=== PATIENT | male | born 2000 | race Caucasian/White ===

== ENCOUNTER 2022-04-28 02:25 | Emergency (ER) | payer OTHER ==
[2022-04-28] MEDS ORDERED: Ondansetron PF 4 MG/2 ML Vial ONE (02:59)
[2022-04-28] MEDS ORDERED: Dicyclomine 20 MG TAB PO SCH (03:00)
[2022-04-28 03:28] LABS: #Eosinphils 0.1 10x3/uL (0.0-0.5); #Monocytes 0.5 10x3/uL (0.0-1.1); #Neutrophils 9.6 10x3/uL (1.5-8.4); %Basophils 0.3 % (0.0-2.0); %Eosinophils 0.7 % (0.0-6.0); %Lymphocytes 4.8 % (18.0-47.0); %Monocytes 4.7 % (0.0-10.0); %Neutrophils 89.3 % (40.0-75.0); Hemoglobin 16.8 g/dL (13.5-17.5); Mean Corpuscular HGB CONC 35.3 g/dL (32.0-36.0); Mean Corpuscular Hemoglobin 28.4 pg (27.0-33.0); Mean Corpuscular Volume 80.5 fl (81.2-95.1); Mean Platelet Volume 10.7 fl (7.4-10.4); Platelet Count 162 10x3/uL (150-450); RBC Distribution Width 12.2 % (11.5-14.5); Red Blood Cell (RBC) Count 5.91 10x6/uL (4.32-5.72); White Blood Cell (WBC) Count 10.7 10x3/uL (3.5-10.5)
[2022-04-28 03:45] LABS: Anion Gap 17 mmol/L (10-20); BUN (Urea Nitrogen) 18 mg/dL (8.9-20.6); Calc. Creatinine Clearance 0 mL/min (70-130); Carbon Dioxide 25 mmol/L (22-29); Chloride 104 mmol/L (98-107); Potassium 3.8 mmol/L (3.5-5.1); Sodium 142 mmol/L (136-145)
[2022-04-28 03:46] LABS: ALT (SGPT) 44 U/L (8-55); AST (SGOT) 86 U/L (5-34); Albumin 4.5 g/dL (3.5-5.0); Alkaline Phosphatase 84 U/L (40-110); Bilirubin, Total 1.9 mg/dL (0.2-1.2); Calcium 9.6 mg/dL (7.8-10.44); Estimated GFR 101; Globulin 2.9 g/dL (2.4-3.5); Glucose 104 mg/dL (70-105); Lipase 27 U/L (8-78); Protein, Total 7.4 g/dL (6.0-8.3)
[2022-04-28] MEDS ORDERED: Dicyclomine 20 MG TAB ONE (04:13)
== END 2022-04-28 04:39 | disposition home or self-care (01) ==
LOC: CSHERS 02:25
DX: R19.7 Diarrhea, unspecified (principal); R11.10 Vomiting, unspecified
CPT/HCPCS: 80053; 83605; 83690; 85025; 96374; J2405